=== PATIENT | female | born 1985 ===

== ENCOUNTER 2025-08-16 09:00 | Outpatient (RCR) | payer OTHER, SELFPAY ==
[2025-08-12 12:08] VITALS: BP 104/60; PULSE 60; TEMP 37.2; BMI 23.7
--- NOTE | 2025-08-16 17:53 | P.HPPSP_ITS ---
HPI Date of Service: 08/16/25 Chief Complaint: anxiety Sources of Information: patient interviewed, chart reviewed and crisis/core team assessment reviewed HPI Narrative: Patient is a 40 yo female with history of depression, SI, mood instability, paranoia, AH in the past, intermittent substance use, treatment who had a recent IPLOC for worsening depression, making SI/HI statements in context of medication non-compliance is being stepped down to [facility] for therapeutic support and ongoing medication management. She was discharged last week from [place] [id number] after 10 day admission. She reports that she had stopped all her medications (which included Abilify and Cymbalta) in March and had been decompensating for the months prior to admission with worsening depression, likely bipolar disorder marked by emotional instability and reactivity, behavioral dysregulation, poor impulse control, During her IP stay, she had initially refused all mediations for 3 days and then eventually agreed to being start on Effexor and hydroxyzine. She complains of on going mood instability, anxiety, vague paranoia. She also shares that she struggles with treatment, even when she is agreeable to take medication and is compliant on medication, she is often resistent to any changes or adjustments to her regime, even when it is clear that an adjustment is warranted. I have trouble (in the therapeutic setting), sometimes I just runaway . She reportedly has been taking her medications daily. We review treatment history, many mood stabilizers she has disliked the side effects which we explore in detail. Past Psychiatric History: IPLOC :[facility] x 10days for SI/HI in 07/2025, No prior PHP, respite, detox/rehab admissions SA: denies SIB: denies Aggression or antisocial behaviors: denies Denies legal history Pertinent developmental hx: Previous diagnoses: Psychiatrist: Therapist: PCP: Previous trials: Adderall XR 15 (was rxed once #30 in 11/2024) CURRENT MEDICATIONS: Effexor 37.5 mg qd hydroxyzine Fiorecet q 4 hr prn migraine (not listed under [facility]) FORMERLY [facility], [facility] Medical History TBI (traumatic brain injury) Tension headache TMJ (temporomandibular joint syndrome) Diagnostics Vital Signs (24Hr): BMI result Body Mass Index 23.7 Meds/Allergies Meds Home Medications ?Medication ?Instructions ?Recorded ?Confirmed ?Type vyushhovpc-iebihbzanajge-vvxaiyqz 1 tab PO Q4H PRN Noe eliz Headache 08/12/25 08/17/25 History 50 mg-325 mg-40 mg tablet cholecalciferol (vitamin D3) 25 25 mcg PO DAILY 08/17/25 History mcg (1,000 unit) tablet (Vitamin D3) hydroxyzine HCl 50 mg tablet 50 mg PO TID PRN Anxiety 08/12/25 08/17/25 History nicotine (polacrilex) 2 mg gum 2 mg buccal Q2H PRN Tavo otine 08/12/25 08/17/25 History Cravings nicotine 21 mg/24 hr daily 1 patch transdermal DAILY N icotine 08/12/25 08/17/25 History transdermal patch cravings venlafaxine 37.5 mg 37.5 mg PO DAILY 08/12/25 History capsule,extended release 24 hr Allergies Allergies Allergy/AdvReac Type Severity Reaction Status Date / Time amoxicillin Allergy Rash, Verified 08/17/25 09:35 vomiting codeine Allergy Rash, Verified 08/17/25 09:35 Vomiting onion Allergy Vomiting, Verified 08/17/25 09:35 throat itching. Penicillins (PCN) Allergy Rash, Verified 08/17/25 09:35 vomiting. quetiapine (From Seroquel) Allergy Skin Verified 08/17/25 09:35 crawling, agitated. Sulfa (Sulfonamide Allergy Rash, Verified 08/17/25 09:35 Antibiotics) vomiting. Mental Status Exam Mental Status Exam Narrative: .Alert, oriented, in no acute distress. Calm, cooperative, engaged. No psychomotor agitation or neurovegetative retardation. Eye contact maintained. Mood depressed, affect constricted, irritable edge without notable lability. Speech normal. Thought process linear, coherent. Thought content related to stressors, transient helplessness, no hopelessness noted, denies SI, intention, urge or plan. Denies any aggressive ideation or HI. No paranoia or delusional content elicited. No evidence of psychosis. Insight and judgment - fair but adequate Assessment & Plan Assessment & Plan (1) Bipolar affective, depress, unspec: Status: Acute Code(s): F31.30 - Bipolar disorder, current episode depressed, mild or moderate severity, unspecified (2) MAEVE (generalized anxiety disorder): Status: Acute Code(s): F41.1 - Generalized anxiety disorder Plan Admit to [facility] VS reviewed: afebrile, BP 104/60;?60 bpm start Vraylar 1.5 mg qd continue regular medications for now Routine lab work as indicated EKG, routine for baseline QTc for medication considerations as indicated UDS as indicated [facility] reviewed Continue to monitor as per protocol Patient educated on: diagnosis and medication risk/benefits Informed Consent: understands Reason for continued partial hosp. stay Substantial Risk for: inability to function, rapid decompensation and med/psych decompensation Certification I certify that partial hospital treatment is medically necessary due to the symptoms and problems resulting from the patient's mental illness and the failure to treat the patient at the partial hospital level of care would likely result in the patient requiring inpatient psychiatric care which could not be prevented at a less intensive level of care. Time Spent With Patient Time: Total time managing care of this patient today __90__ minutes.
== END 2025-08-16 23:59 | disposition admitted as inpatient to this hospital (09) ==
LOC: HO.PHPA 09:00
PROVIDERS: Visit Provider Psychiatry & Neurology Psychiatry
DX: F31.30 Bipolar disorder, current episode depressed, mild or moderate severity, unspecified (principal); F41.1 Generalized anxiety disorder; Z79.899 Other long term (current) drug therapy
CPT/HCPCS: 90791; 90853

== ENCOUNTER → 2025-08-16 09:00 | Outpatient (BNV) | payer OTHER, SELFPAY | PROVIDERS: Visit Provider Psychiatry & Neurology Psychiatry | DX: F31.32 Bipolar disorder, current episode depressed, moderate (principal); F41.1 Generalized anxiety disorder | CPT/HCPCS: 99499 ==

== ENCOUNTER 2025-08-17 09:28 | Emergency (ER) | payer MEDICAID, SELFPAY ==
[2025-08-17 09:34] VITALS: BP 158/81; PULSE 83; RESP 18; TEMP 36.7; O2SAT 98; BMI 22.5
--- NOTE | 2025-08-17 09:37 | ED_ITS ---
HPI - General Adult General Chief complaint: Psychiatric Symptoms Stated complaint: si Time Seen by Provider: 08/17/25 09:36 Source: patient Mode of arrival: ambulatory Limitations: no limitations History of Present Illness ED Provider: Mireya Dunham PA-C HPI narrative: Patient is a 40 year old assigned female at with a history of TBI and TMJ presenting to the emergency department today with suicidal ideation. Patient states that she has been feeling suicidal with a plan but would prefer to share the details with the CARE team. Patient denies any other complaints at this time. Related Data Home Medications ?Medication ?Instructions ?Recorded ?Confirmed atiqcotnoq-ifystbrhouluk-bllxzxkl 1 tab PO Q4H PRN Noe eliz Headache 08/12/25 08/17/25 50 mg-325 mg-40 mg tablet cholecalciferol (vitamin D3) 25 25 mcg PO DAILY 08/17/25 mcg (1,000 unit) tablet (Vitamin D3) hydroxyzine HCl 50 mg tablet 50 mg PO TID PRN Anxiety 08/12/25 08/17/25 nicotine (polacrilex) 2 mg gum 2 mg buccal Q2H PRN Tavo otine 08/12/25 08/17/25 Cravings nicotine 21 mg/24 hr daily 1 patch transdermal DAILY N icotine 08/12/25 08/17/25 transdermal patch cravings venlafaxine 37.5 mg 37.5 mg PO DAILY 08/12/25 capsule,extended release 24 hr Previous Rx's ?Medication ?Instructions ?Recorded cariprazine 1.5 mg capsule 1.5 mg PO DAILY #20 caps Allergies Allergy/AdvReac Type Severity Reaction Status Date / Time amoxicillin Allergy Rash, Verified 08/17/25 09:35 vomiting codeine Allergy Rash, Verified 08/17/25 09:35 Vomiting onion Allergy Vomiting, Verified 08/17/25 09:35 throat itching. Penicillins (PCN) Allergy Rash, Verified 08/17/25 09:35 vomiting. quetiapine (From Seroquel) Allergy Skin Verified 08/17/25 09:35 crawling, agitated. Sulfa (Sulfonamide Allergy Rash, Verified 08/17/25 09:35 Antibiotics) vomiting. Review of Systems 2 Constitutional: Constitutional: Reports as per HPI Eyes: Eyes: Reports as per HPI ENT: Reports as per HPI Cardiovascular: Cardiovascular: Reports as per HPI Respiratory: Respiratory: Reports as per HPI Gastrointestinal: Gastrointestinal: Reports as per HPI Genitourinary: Genitourinary: Reports as per HPI Musculoskeletal: Musculoskeletal: Reports as per HPI Integumentary/Breasts: Skin/Breast: Reports as per HPI Neurologic: Reports as per HPI Psychiatric: Psychiatric: Reports as per HPI Endocrine: Endocrine: Reports as per HPI Hematologic/Lymphatic: Hematologic/Lymphatic: Reports as per HPI Allergic/Immunologic: Allergic/Immunologic: Reports as per HPI [facility] Past Medical History Attestation statement: The following information was validated with the patient. Source: old records reviewed and nursing notes reviewed Medical History TBI (traumatic brain injury) Tension headache TMJ (temporomandibular joint syndrome) Social History Social History Household Members: Significant Other Patient Tobacco Use Status: Current everyday Tobacco user Tobacco use type: Cigarette Advance Directives: No Advance Directives Information Provided: No Do you have a plan to hurt others: No Plan Patient : No Physical Exam ED Vital Signs: Vital Signs - 24 hr 08/20/25 06:31 08/20/25 08:45 Temperature 97.6 F Pulse Rate 89 Respiratory Rate 16 18 Blood Pressure 124/84 Pulse Oximetry 99 Oxygen Delivery Method Room Air BMI result Body Mass Index 22.5 Const General: cooperative, no acute distress, alert and awake Nutritional Appearance: well nourished Orientation/consciousness: patient oriented x3 HENMT Head: Yes normal to inspection and Yes atraumatic Ears: hearing grossly normal bilaterally and external ears normal General nose exam: Normal external nose present, no nasal discharge noted and no epistaxis Face and sinus: Yes normal facial exam, No abrasion and No laceration Mouth: Normal oral and palatal mucosa present, no drooling and no muffled voice Eyes General: appearance normal, both eyes and all related structures Periorbital: periorbital findings normal Eyelids: Yes eyelids normal Conjunctivae: conjunctivae normal Pupils: Equal, round and reactive pupils present EOM: EOMs intact bilaterally Neck Neck: Yes normal visual inspection and Yes full ROM Resp Effort & Inspection: normal respiratory effort and able to speak in complete sentences Neuro General: patient oriented x3, moves all extremities and CN's II-XI intact bilaterally Cranial nerves: Yes Equal, round and reactive pupils present Cognition (Neuro): normal cognition Extrem General: Yes normal to inspection, Yes full ROM and Yes capillary refill normal Psych Appearance: grossly normal Mental Status: mental status grossly normal Affect: normal affect Attitude: cooperative Thought content: Suicidality present Course Course Course Narrative: Time: 08:36 Date: 08/18/25 Provider: Demarco Fisher, DO Patient in physician observation for psychiatric evaluation.? No acute events reported overnight. No current complaints. VS stable.? Patient is in bed search Will continue to monitor. Reevaluation(s) Reevaluation #1: Time: 17:29 Date: 08/19/25 Provider: Timothy Villeda MD Patient in physician observation for psychiatric evaluation.? No acute events reported overnight. No current complaints. VS stable.? Patient is in bed search status. No acute events during the day shift today. Will continue to monitor. Time: 17:30 Reevaluation #2: Time: 17:13 Date: 08/20/25 Provider: Timothy Villeda MD Physician observation ended at 17:00. There were no acute events during the overnight shift last night and there has been no acute events during the day shift today. The patient has been accepted for hospitalization at the [facility] in [facility] and will be transferred there by ambulance. No new acute issues. Medications Administered Generic Name Dose Route Start Last Admin Trade Name Freq PRN Reason Stop Dose Admin Acetaminophen/Butalbital/Caffeine 1 tab 08/17/25 18:59 08/20/25 07:51 Butalb/Acetamin/Caff 50/325/40 Tablet PO 1 tab Q4H PRN Administration Migraine Headache Cariprazine 1.5 mg 08/18/25 09:00 08/20/25 08:54 Cariprazine Hcl 1.5 Mg Capsule PO 1.5 mg DAILY VARINDER Administration Hydroxyzine HCl 50 mg 08/17/25 18:59 08/20/25 13:34 Hydroxyzine Hcl 50 Mg Tablet PO 50 mg TID PRN Administration Anxiety Nicotine 21 mg 08/17/25 19:00 08/20/25 08:58 Nicotine 21 Mg Patch.Td24 TRANSDERMA Not Given DAILY VARINDER Nicotine Polacrilex 2 mg 08/17/25 18:59 08/20/25 16:53 Nicotine Polacrilex 2 Mg Gum BUCCAL 2 mg Q2H PRN Administration Nicotine Cravings Venlafaxine HCl 37.5 mg 08/18/25 09:00 08/20/25 08:54 Venlafaxine Hcl Er 37.5 Mg Cap.Er.24h PO 37.5 mg DAILY VARINDER Administration Vitamin D 25 mcg 08/18/25 09:00 08/20/25 08:54 Cholecalciferol (Vitamin D3) 25 Mcg Tablet PO 25 mcg DAILY VARINDER Administration Discontinued Medications Generic Name Dose Route Start Last Admin Trade Name Adriano PRN Reason Stop Dose Admin Calcium Carbonate 750 mg 08/17/25 13:48 08/17/25 15:12 Calcium Carbonate 750 Mg Tab.Chew PO 08/17/25 13:49 750 mg ONCE ONE Administration Calcium Carbonate 1,500 mg 08/20/25 14:54 08/20/25 16:04 Calcium Carbonate 750 Mg Tab.Chew PO 08/20/25 14:55 1,500 mg ONCE ONE Administration Hydroxyzine HCl 25 mg 08/17/25 13:48 08/17/25 13:54 Hydroxyzine Hcl 25 Mg Tablet PO 08/17/25 13:49 25 mg ONCE ONE Administration Medical Decision Making Medical Decision Making MDM Narrative: Patient is a 40 year old assigned female at with a history of TBI and TMJ presenting to the emergency department today with suicidal ideation. Patient's physical exam was as noted in the physical exam portion of this note. Patient's blood work was unremarkable. Patient's urine showed no acute process. Patient met with the CARE Team who recommended inpatient level of psychiatric care. Patient placed in observation at 0937. Patient will either be admitted to the inpatient psychiatric unit here at [facility] or transferred to an appropriate psychiatric facility. Differential Diagnosis Differential Diagnoses: The differential diagnosis associated with the presentation includes SI Depression Admission/Observation Consideration of admission/observation: Escalation of care including admission/observation considered Patient will either be admitted to the inpatient psychiatric unit here at [facility] or transferred to an appropriate psychiatric facility. Consult Healthcare Provider Management of the patient was discussed with: Behavioral Health Provider (I spoke with the CARE team as noted in the MDM Rationale portion of this note. ) Lab Data MDM Lab Attestation statement: I reviewed the patient's lab results. My interpretation of these results are in the MDM Rationale portion of this note. 08/17/25 10:12 08/17/25 10:12 Labs: Lab Results 08/17/25 Range/Units 10:12 WBC 10.4 (4.8-10.8) X10*3/uL RBC 4.46 (4.20-5.50) X10*6/uL Hgb 12.3 (12.0-16.0) g/dl Hct 38.3 (37.0-47.0) % MCV 85.9 (80.0-98.0) fL MCH 27.6 (27.0-33.0) pg MCHC 32.1 (31.0-35.0) g/dl RDW 15.2 (11.0-16.0) % Plt Count 335 (160-400) X10*3/uL MPV 9.1 L (9.4-12.3) fL Immature Gran % (Auto) 0.3 (0.0-0.4) % Neut % (Auto) 68.5 (45-73) % Lymph % (Auto) 23.4 (20-40) % [place] % (Auto) 4.9 (2-11) % Eos % (Auto) 2.2 (0-4) % Baso % (Auto) 0.7 (0-2) % Lymph # (Auto) 2.4 (1.2-4.9) X10*3/uL [place] # (Auto) 0.5 (0.1-1.2) X10*3/uL Eos # (Auto) 0.2 (0.0-0.4) X10*3/uL Baso # (Auto) 0.1 (0.0-0.2) X10*3/uL Abs Immat Gran (auto) 0.03 (0.00-0.03) X10*3/uL Absolute Neuts (auto) 7.1 (2.0-8.3) x10*3/uL Absolute Nucleated RBC 0.000 (0.0-0.012) X10*3/uL Nucleated RBC % (auto) 0.0 (0.0-0.2) /100WBC Sodium 138 (135-145) mmol/L Potassium 3.9 (3.3-5.1) mmol/L Chloride 107 (96-108) mmol/L Carbon Dioxide 23 (22-29) mmol/L Anion Gap 12 (12-20) BUN 17 H (9-16) mg/dL Creatinine 0.70 (0.5-1.4) mg/dL Estim Creat Clear Calc 109.4 Estimated GFR > 60 Random Glucose 98 (60-115) mg/dL Calcium 9.2 (8.4-10.2) mg/dL Total Bilirubin 0.3 (0.0-1.0) mg/dL AST 22 (5-31) U/L ALT 25 (0-31) U/L Alkaline Phosphatase 62 (39-117) U/L Total Protein 7.1 (6.5-8.0) g/dL Albumin 4.5 (3.5-5.0) g/dL Urine Color Yellow Urine Appearance Clear Urine pH 6.0 (5.0-9.0) Ur Specific [place] 1.020 (1.005-1.025) Urine Protein Negative (Neg-Trace) mg/dL Urine Glucose (UA) Negative (Negative) mg/dL Urine Ketones Negative (Negative) mg/dL Urine Blood Negative (Negative) Urine Nitrite Negative (Negative) Ur Leukocyte Esterase Negative (Negative) Urine Test NEGATIVE (NEGATIVE) Salicylates < 5.0 L (15-30) mg/dL Urine Opiates Screen Not Detected (Not Detect) Ur Buprenorphine Scrn Not Detected (Not Detect) ng/mL Ur Oxycodone Screen Not Detected (Not Detect) ng/mL Urine Methadone Screen Not Detected (Not Detect) ng/mL Urine Fentanyl Screen Not Detected (Not Detect) Acetaminophen < 3 (<30) mcg/mL Ur Barbiturates Screen POSITIVE H (Not Detect) Ur Phencyclidine Scrn Not Detected (Not Detect) Ur Amphetamines Screen Not Detected (Not Detect) U Benzodiazepines Scrn Not Detected (Not Detect) Urine Cocaine Screen Not Detected (Not Detect) U Marijuana (THC) Screen POSITIVE H (Not Detect) Ethyl Alcohol < 10 mg/dL Critical Care Time Critical Care Time Critical Care Time: Yes Total Critical Care Time: 34 Attestation: I spent 34 minutes of Critical Care Time with this patient. This does not include time spent on separately reported billable procedures. Discharge Plan Discharge Clinical Impression: Suicidal ideation Depression Qualifiers: Depression Type: unspecified Qualified Code(s): F32.A - Depression, unspecified Patient Disposition: Xfer Psychiatric Hosp Transfer Details: [facility]: [facility] BY [facility] HARPER Prescriptions: No Action venlafaxine 37.5 mg Capsule,Extended Release 24hr 37.5 mg PO DAILY nicotine (polacrilex) 2 mg Gum 2 mg BUCCAL Q2H PRN (Reason: Nicotine Cravings) hydroxyzine HCl [Atarax] 50 mg Tablet 50 mg PO TID PRN (Reason: Anxiety) yjodrzejss-aqvhelrkuqlua-esee 50-325-40 mg Tablet 1 tab PO Q4H PRN (Reason: Migraine Headache) nicotine 21 mg/24 hr Patch 24 Hour 1 patch TRANSDERMAL DAILY cholecalciferol (vitamin D3) [Vitamin D3] 25 mcg (1,000 unit) Tablet 25 mcg PO DAILY cariprazine 1.5 mg capsule 1.5 mg PO DAILY Qty: 20 0RF Referrals: [facility] [Primary Care Provider, Medical] Interventions: [place]-Suicide Risk Severity Scale Last Done: 08/19/25 18:12 Print Language: Choose Not To Answer
--- OUTSIDE RECORDS SUMMARY | 2025-08-17 09:47 | XMS_ITS | Clinical Summary ---
Author Organization [facility] Address [address] [employer] [facility] [address] [place] [phone] Phone Care Team Providers Care Career Development Director Name Role Phone Marco Acharya DO Unavailable Pcp, Unknown Primary Care Provider Unavailabl e Allergies Active Allergy Reactions Criticality Noted Date Comments Amoxicillin 12/06/2017 Codeine 12/06/2017 Onion 11/13/2024 Penicillins 06/05/2012 Other Reaction(s): Unknown Quetiapine Feeling Irritable Low 07/31/2025 Sulfa (Sulfonamide Antibiotics) 06/05/2012 Other Reaction(s): rash Sulfate Ion 03/14/2025 Medications * This document contains information received from the source organization and may not represent a complete record from that organization. butalbital-acet aminophen-caffe ine (FIORICET, ESGIC) 50-325-40 mg per tablet Take 1 tablet by mouth every 4 (four) hours as needed for headache. 42 tablet 5 Active cholecalciferol (VITAMIN D3) 25 MCG (1,000 unit) tablet Take 1 tablet (1,000 Units total) by mouth daily. 21 tablet 5 Active hydrOXYzine (ATARAX) 50 MG tablet Take 1 tablet (50 mg total) by mouth 3 (three) times a day as needed for anxiety. 63 tablet 5 Active venlafaxine (EFFEXOR-XR) 37.5 MG 24 hr capsule Take 1 capsule (37.5 mg total) by mouth daily. 21 capsule 5 Active nicotine (NICODERM CQ) 21 mg/[address] 1 patch onto the skin daily. Apply to a clean, dry, hairless site on the upper arm or hip. 21 patch Active nicotine polacrilex (NICORETTE) [address] 1 each (2 mg total) inside cheek every 2 (two) hours as needed for smoking cessation. 190 each 5 Active ARIPiprazole (ABILIFY) 20 MG tablet Take 1 tablet (20 mg total) by mouth daily. 30 tablet 5 08/07/20 Discontinu ed(Stop Taking at Discharge) dextroamphetami ne-amphetamine (ADDERALL XR) 15 MG 24 hr capsule Take 1 capsule (15 mg total) by mouth every morning. 30 capsule 5 08/07/20 Discontinu ed(Stop Taking at Discharge) DULoxetine (CYMBALTA) 60 MG capsule Take 1 capsule (60 mg total) by mouth 2 (two) times a day. 60 capsule 5 08/07/20 Discontinu ed(Stop Taking at Discharge) Active Problems Problem Noted Date Diagnosed Date Suicidal ideation 02/26/2023 Assessment & Plan (08/02/2025 9:32 AM EDT): Per psychiatry. TMJ; NSAIDs ie motrin 400mg tid prn or naprosyn 500 bid prn. Ice. Dentist as outpt. 6th cranial nerve palsy. DW neuro, findings on MRI could be microangiopathic, but could be related to sporadic cocaine use as well. This problem has a good prognosis. Will ask our OT if anyone here has training, if not who to refer to as outpt. MG labs as well as CRP and ESR for am. Pt aware of findings, suspected etiology and anticipated course. Cocaine cessation and tobacco cessation encouraged. If MG labs are abnormal(probably won't be back before dc) or CRP/ESR are significantly elevated(would need to consider vasculitis) reconsult medicine. Otherwise, signing off. Encounters * This document contains information received from the source organization and may not represent a complete record from that organization. Date Type Department Care Team Description 08/01/2025 Procedure Pass [facility], [facility] - [address] [address] from Last 3 Months Immunizations Immunization Administration Dates Next Due INFLUENZA, SPLIT VIRUS, TRIVALENT PF 08/07/2025( Deferred: Patient Refused) Social History Tobacco Use Types Packs/Day Years Used Date Smoking Tobacco: Every Day Cigarettes Tobacco Cessation:Ready to Q uit: Not Asked; Counseling Given: Not Answered Alcohol Use Standard Drinks/Week Comments Yes 0 (1 standard drink = 0.6 oz pur e alcohol) Education Answer Date Recorded Are you interested in more education? Not on reginald e 03/04/2023 Are you concerned about learning? Not on file 03/04/2023 No 03/04/2023 No 03/04/2023 Food Answer Date Recorded Within the past 6 months we worried whether our food would run out before we got money to buy more. Never True 07/27/2025 Within the past 6 months the food we bought just didn't last and we didn't have enough money to get more. Never True Residential Stability Answer Date Recor ded What is your housing situation today? I have lola sing 07/27/2025 How many times have you move d in the past 12 months? Zero (I did not move) 07/27/2025 Paying for Meds Answer Date Recorded Do you have trouble paying for medicines? No 07/27/2025 Paying Utility Bills Answer Date Record ed Do you have trouble paying your heating or elect ricity bill? No 07/27/2025 Transportation Answer Date Recorded Has the lack of transportati on kept you from medical appointments or from getting medications? No 07/27/2025 Digital Access Answer Date Recorded No 07/27/2025 Yes 07/27/2025 Do you have reliable internet access at home? Ye s 07/27/2025 Do you have a device (e.g., phone, tablet, computer) with a working camera? Yes 07/27/2025 Intimate Partner Violence Answer Date R ecorded Are you denied basic needs s uch as food, clothing, or medical care? No 07/27/2025 In the past 12 months have y ou been in a relationship with a person who hurts, threatens, or tries to control you? No 07/27/2025 Are you denied basic needs s uch as food, clothing, or medical care? No 07/27/2025 In the past 12 months have y ou been in a relationship with a person who hurts, threatens, or tries to control you? No 07/27/2025 Comments Unknown Sex and Gender Information Value Date Recorded Sex Assigned at Female 02/26/2023 1:44 PM EDT Legal Sex Female 9:18 PM EDT Gender Identity Female 02/26/2023 1:44 PM EDT Sexual Orientation Not on file Last Filed Vital Signs Vital Sign Reading Time Taken Comments Blood Pressure 111/75 08/07/2025 7:00 AM EDT Pulse 64 08/07/2025 7:00 AM EDT Temperature 36.4 C (97.5 F) 08/07/2025 7:00 AM EDT Respiratory Rate 16 08/07/2025 7:00 AM EDT Oxygen Saturation 98% 08/07/2025 7:00 AM EDT Inhaled Oxygen Concentration - - Weight 68.2 kg (150 lb 6.4 oz) 07/28/2025 12:34 PM EDT Height 172.7 cm (5' 8 ) 07/28/2025 12:34 PM EDT Body Mass Index 22.87 07/28/2025 12:34 PM EDT Plan of Treatment Health Maintenance Due Date Last Done Comments Adult Td,Tdap Booster 1983 DEPRESSION SCREENING 1995 SMOKING Hx and SMOKELESS TOB ACCO SCREENING 1996 HEPATITIS C SCREENING 2001 HIV ONE-TIME SCREENING (18-6 5 YEARS) 2001 PNEUMOCOCCAL VACCINES (0-49 years) (1 of 2 - PCV) 2002 PAP SMEAR 2004 MAMMOGRAM 2023 INFLUENZA VACCINE (#1) 2025 COVID-19 VACCINE ( - 2024-2 6 season) 2025 HEPATITIS A VACCINES Aged Out No long er eligible based on patient's age to complete this topic HIB VACCINES Aged Out No longer eligi ble based on patient's age to complete this topic MENINGOCOCCAL VACCINES (ACWY) Aged Out No longer eligible based on patient's age to complete this topic MENINGOCOCCAL VACCINES (B) Aged Out N o longer eligible based on patient's age to complete this topic Medical Devices Not on file Procedures Procedure Name Priority Date/Time Associated Diagnosis Comments MUSK ANTIBODY Routine 08/03/2025 8:20 AM EDT C-REACTIVE PROTEIN Routine 08/03/2025 8: 20 AM EDT SEDIMENTATION RATE (ESR) Routine 08/03/2025 8:20 AM EDT MYASTHENIA GRAVIS EVALUATION W/MUSK REFLEX Routine 08/03/2025 8:20 AM EDT MRI BRAIN WITH AND WITHOUT CONTRAST Routine 08/01/2025 7:54 PM EDT HEMOGLOBIN A1C Routine 07/29/2025 7:39 AM EDT LIPID PANEL Routine 07/29/2025 7:39 AM EDT 25-OH VITAMIN D Routine 07/29/2025 7:39 AM EDT FOLATE Routine 07/29/2025 7:39 AM EDT TSH WITH REFLEX Routine 07/29/2025 7:39 AM EDT VITAMIN B12 Routine 07/29/2025 7:39 AM EDT SALICYLATES STAT 07/27/2025 7:05 PM EDT ACETAMINOPHEN LEVEL STAT 07/27/2025 7 :05 PM EDT HCG, SERUM QUALITATIVE STAT 7:05 PM EDT ETHANOL, BLOOD STAT 07/27/2025 7:05 PM EDT LFTS (HEPATIC PANEL) STAT 07/27/2025 7:05 PM EDT BASIC METABOLIC PANEL STAT 07/27/2025 7:05 PM EDT CBC AND DIFFERENTIAL STAT 07/27/2025 7:05 PM EDT TOXICOLOGY SCREEN, URINE STAT 07/27/2025 5:41 PM EDT from Last 3 Months Results * Myasthenia gravis evaluation w/MuSK reflex (08/03/2025 8:20 AM EDT) MG with MuSK Interpretation SEE NOTE [facility] DPT OF LAB MED AND PAT+ Comment: (NOTE) No informative autoantibodies were detected. A negative result does not exclude a diagnosis of autoimmune myasthenia gravis. ACH RECEPTOR BIND AB 0.00 <=0.02 nmol/L [facility] DPT OF LAB MED AND PAT+ Comment: (NOTE) ADDITIONAL INFORMATION This test was developed and its performance characteristics determined by [facility] in a manner consistent with CLIA requirements. This test has not been cleared or approved by the U.S. Food and Drug Administration. Blood 08/03/2025 8:20 AM EDT 08/03/2025 8:41 AM EDT us Oziel Pink MD LAB BLOOD ORDERABLES Final Result [facility] DPT OF LAB MED AND PAT+ [address] [place] [address] * MUSK ANTIBODY (08/03/2025 8:20 AM EDT) MUSK ANTIBODY 0.00 0.00 - 0.02 nmol/L [facility] DPT OF LAB MED AND PAT+ Comment: (NOTE) ADDITIONAL INFORMATION This test was developed using an analyte specific reagent. Its performance characteristics were determined by [facility] in a manner consistent with CLIA requirements. This test has not been cleared or approved by the U.S. Food and Drug Administration. 08/03/2025 8:20 AM EDT 08/03/2025 8:41 AM EDT us Oziel Pink MD LAB BLOOD ORDERABLES Final Result [facility] DPT OF LAB MED AND PAT+ [address] [place] [address] * (ABNORMAL) Sedimentation rate (ESR) (08/03/2025 8:20 AM EDT) ESR 24(H) 0 - 20 mm/h [facility] Blood 08/03/2025 8:20 AM EDT 08/03/2025 8:41 AM EDT us Oziel Pink MD LAB BLOOD ORDERABLES Final Result Performing Organization Address [facility] Co de Phone Number [address] [address] * (ABNORMAL) C-Reactive Protein (08/03/2025 8:20 AM EDT) C REACTIVE PROTEIN 16.4(H) 0.0 - 4.0 mg/L [facility] Blood 08/03/2025 8:20 AM EDT 08/03/2025 8:41 AM EDT us Oziel Pink MD LAB BLOOD ORDERABLES Final Result Performing Organization Address [facility] Co de Phone Number [address] [address] * MRI BRAIN WITH AND WITHOUT CONTRAST (08/01/2025 7:54 PM EDT) Anatomical Region Laterality Modality Head Magnetic Resonan ce 08/01/2025 8:22 PM EDT Impressions 08/01/2025 8:31 PM EDT Few scattered small foci of FLAIR hyperintensity within the supratentorial white matter is a nonspecific finding, with differential diagnosis to include chronic migraines, early microangiopathic changes, and demyelinating disease Narrative 08/01/2025 8:31 PM EDT MRI BRAIN WITH AND WITHOUT CONTRAST Referring clinician's provided indication for this examination in [facility]: * Diplopia; new onset double vision, no gross abnormalities by exam TECHNIQUE: MRI BRAIN WITH AND WITHOUT CONTRAST Multi-sequence, multi-planar MRI of the brain and orbits was performed before and after intravenous contrast. COMPARISON: None. FINDINGS: MRI BRAIN: Brain Parenchyma: There is no mass-effect, midline shift, or space-occupying lesion. There is no decreased diffusion to indicate an acute infarct. There are scattered small foci of FLAIR hyperintensity predominantly in the subcortical and periventricular frontal lobes. Ventricular System and Extra-Axial Spaces: The ventricles, sulci and cisterns are age-appropriate. Extracranial Structures: The visualized paranasal sinuses appear clear. The mastoid air cells appear clear. Orbits: Normal signal in the optic nerves. No ocular mass identified. No abnormal fluid signal enhancement orbital fat. Procedure Note Vinnie Arce MD - 08/01/2025 MRI BRAIN WITH AND WITHOUT CONTRAST Referring clinician's provided indication for this examination in [facility]: *Diplopia; new onset double vision, no gross abnormalities by exam TECHNIQUE: MRI BRAIN WITH AND WITHOUT CONTRAST Multi-sequence, multi-planar MRI of the brain and orbits was performedbefore and after intravenous contrast. COMPARISON: None. FINDINGS: MRI BRAIN: Brain Parenchyma: There is no mass-effect, midline shift, orspace-occupying lesion. There is no decreased diffusion to indicate anacute infarct. There are scattered small foci of FLAIR hyperintensity predominantly inthe subcortical and periventricular frontal lobes. Ventricular System and Extra-Axial Spaces: The ventricles, sulci andcisterns are age-appropriate. Extracranial Structures: The visualized paranasal sinuses appear clear.The mastoid air cells appear clear. Orbits: Normal signal in the optic nerves. No ocular mass identified. Noabnormal fluid signal enhancement orbital fat. IMPRESSION: Few scattered small foci of FLAIR hyperintensity within the supratentorialwhite matter is a nonspecific finding, with differential diagnosis toinclude chronic migraines, early microangiopathic changes, anddemyelinating disease Oziel Pink MD IMG MR HEAD/NECK Final Resu lt * TSH with reflex (07/29/2025 7:39 AM EDT) TSH 1.55 0.27 - 4.20 uIU/mL [facility] Blood 07/29/2025 7:39 AM EDT 07/29/2025 8:21 AM EDT us Jabari Alexa Jarrett [facility]- LAB BLOOD ORDERAB LES Final Result Performing Organization Address City/[facility]/ZIP Co de Phone Number [address] [address] * (ABNORMAL) 25-OH vitamin D (07/29/2025 7:39 AM EDT) 25 OH VIT D (TOTAL) 22(L) 30 - 60 ng/mL [facility] Blood 07/29/2025 7:39 AM EDT 07/29/2025 8:21 AM EDT us Jabari Fieldsarko [facility]- LAB BLOOD ORDERAB LES Final Result Performing Organization Address [facility]/ZIP Co de Phone Number [address] [address] * Hemoglobin A1c (07/29/2025 7:39 AM EDT) HEMOGLOBIN A1C 5.7 4.3 - 5.8 % [facility] Blood 07/29/2025 7:39 AM EDT 07/29/2025 8:21 AM EDT us aJbari Fieldsarko [facility]- LAB BLOOD ORDERAB LES Final Result Performing Organization Address City/[facility]/ZIP Co de Phone Number [address] [address] * Folate (07/29/2025 7:39 AM EDT) FOLIC ACID 12.1 4.2 - 19.9 ng/mL [facility] Blood 07/29/2025 7:39 AM EDT 07/29/2025 8:21 AM EDT us [facility]ari [facility] LAB BLOOD ORDERAB LES Final Result [address] [address] * Vitamin B12 (07/29/2025 7:39 AM EDT) VITAMIN B12 322 232 - 1,245 pg/mL [facility] Blood 07/29/2025 7:39 AM EDT 07/29/2025 8:21 AM EDT us Jabari Liu [facility] LAB BLOOD ORDERAB LES Final Result Performing Organization Address City/[facility]/ZIP Co de Phone Number [address] [address] * (ABNORMAL) Lipid panel (07/29/2025 7:39 AM EDT) HDL 77 mg/dL [facility] Comment: Interpretation <40 mg/dL: Low HDL cholesterol (major risk factor for CHD) Greater than or equal to 60 mg/dL: High HDL cholesterol ( negative risk factor for CHD) HDL - cholesterol is affected by a number of factors, e.g. smoking, excerise, hormones, sex and age. CHOLESTEROL 201 0 - 240 mg/dL [facility] TRIGLYCERIDES 73 30 - 160 mg/dL [facility] LDL 109 50 - 129 mg/dL [facility] Comment: LDL levels in terms of risk for coronary heart disease: <100 mg/dL: Optimal 100-129 mg/dL: Near or above optimal 130-159 mg/dL: Borderline high 160-189 mg/dL: High >190 mg/dL: Very High CARDIAC RISK RATIO 2.6(L) 3.3 - 4.4 C [facility] Blood 07/29/2025 7:39 AM EDT 07/29/2025 8:22 AM EDT us Jabari Umañalie Kolby [facility] LAB BLOOD ORDERAB LES Final Result Performing Organization Address City/[facility]/ZIP Co de Phone Number [address] [address] * Ethanol, blood (07/27/2025 7:05 PM EDT) ETHANOL <10 <10 mg/dL [facility] Blood 07/27/2025 7:05 PM EDT 07/27/2025 7:08 PM EDT us Roger Deutsch MD LAB BLOOD ORDERAB LES Final Result Performing Organization Address [facility]/ZIP Co de Phone Number [address] [address] * HCG, serum qualitative (07/27/2025 7:05 PM EDT) HCG, QUALITATIVE Negative Negative IU/L [facility] Blood 07/27/2025 7:05 PM EDT 07/27/2025 7:08 PM EDT us Roger Deutsch MD LAB BLOOD ORDERAB LES Final Result Performing Organization Address City/[facility]/ZIP Co de Phone Number [address] [address] * LFTs (hepatic panel) (07/27/2025 7:05 PM EDT) ALKALINE PHOSPHATASE 58 39 - 117 U/L [facility] TOTAL BILIRUBIN 0.3 0.0 - 1.2 mg/dL [facility] DIRECT BILIRUBIN 0.1 0.0 - 0.2 mg/dL [facility] Bilirubin (Indirect) NOT CALCULATED 0 - 1.5 mg/dL [facility] AST 15 0 - 37 U/L [facility] ALT 10 0 - 40 U/L [facility] TOTAL PROTEIN 7.4 6.5 - 8.0 g/dL [facility] ALBUMIN 4.4 3.9 - 4.8 g/dL [facility] GLOBULIN 3.0 1 - 4.8 g/dL [facility] A/G Ratio 1.47 1.00 - 4.80 RATIO [facility] Blood 07/27/2025 7:05 PM EDT 07/27/2025 7:08 PM EDT us Roger Deutsch MD LAB BLOOD ORDERAB LES Final Result [address] [address] * (ABNORMAL) CBC and differential (07/27/2025 7:05 PM EDT) WBC 7.28 4.00 - 11.00 K/uL [facility] RBC 4.47 4.00 - 5.20 M/uL [facility] HGB 12.6 12.0 - 16.0 g/dL [facility] HCT 39.1 36.0 - 46.0 % [facility] PLT 275 150 - 450 K/uL [facility] MCV 87.5 80.0 - 100.0 fL [facility] MCH 28.2 27.0 - 31.0 pg [facility] MCHC 32.2 32.0 - 36.0 g/dL [facility] RDW 15.5(H) 11.5 - 14.5 % [facility] MPV 9.0 8.4 - 12.0 fL [facility] NRBC 0.00 0.00 /100 WBCs [facility] ABSOLUTE NRBC 0.00 0.00 K/uL [facility] DIFF METHOD Auto [facility] NEUTS 52.2 48.0 - 76.0 % [facility] LYMPHS 36.8 18.0 - 41.0 % [facility] MONOS 6.6 4.0 - 11.0 % [facility] EOS 2.9 0.0 - 5.0 % [facility] BASOS 1.4 0.0 - 1.5 % [facility] Granulocytes, immature (%) 0.1 0.0 - 0.9 % [facility] ABSOLUTE NEUTS 3.80 1.92 - 7.60 K/uL [facility] ABSOLUTE LYMPHS 2.68 0.72 - 4.10 K/uL [facility] ABSOLUTE MONOS 0.48 0.16 - 1.10 K/uL [facility] ABSOLUTE EOS 0.21 0.00 - 0.50 K/uL [facility] ABSOLUTE BASOS 0.10 0.00 - 0.15 K/uL [facility] Granulocytes, immature 0.01 0.00 - 0.09 K/uL [facility] Blood 07/27/2025 7:05 PM EDT 07/27/2025 7:08 PM EDT us Roger Deutsch MD LAB BLOOD ORDERAB LES Final Result [address] [address] * (ABNORMAL) Acetaminophen level (07/27/2025 7:05 PM EDT) ACETAMINOPHEN <5.0(L) 15.0 - 30.0 ug/mL [facility] Blood 07/27/2025 7:05 PM EDT 07/27/2025 7:09 PM EDT us Kaden Pulliam PA-C LAB BLOOD ORDERABLES Final Res ult [address] [address] * (ABNORMAL) Salicylates (07/27/2025 7:05 PM EDT) SALICYLATES <0.3(L) 2.8 - 19.9 mg/dL [facility] Blood 07/27/2025 7:05 PM EDT 07/27/2025 7:09 PM EDT us Kaden Pulliam PA-C LAB BLOOD ORDERABLES Final Res ult Performing Organization Address City/[facility]/ZIP Co de Phone Number [address] [address] * (ABNORMAL) Basic metabolic panel (07/27/2025 7:05 PM EDT) SODIUM 141 133 - 146 mmol/L [facility] CHLORIDE 107 96 - 108 mmol/L [facility] POTASSIUM 4.1 3.3 - 5.1 mmol/L [facility] CO2 22 21 - 35 mmol/L [facility] BUN 8 6 - 19 mg/dL [facility] CREATININE 0.70 0.5 - 1.5 mg/dL [facility] GLUCOSE 102(H) 70 - 99 mg/dL [facility] CALCIUM 8.9 8.4 - 10.3 mg/dL [facility] EGFR 111 >59 mL/min/1.7 3m2 [facility] Comment:Estimated glomerular filtration rate calculated using the CKD-EPI refit equation. ANION GAP 16 10 - 20 mmol/L [facility] Blood 07/27/2025 7:05 PM EDT 07/27/2025 7:08 PM EDT us Roger Deutsch MD LAB BLOOD ORDERAB LES Final Result Performing Organization Address [facility]/ZIP Co de Phone Number [address] [address] * (ABNORMAL) Toxicology screen, urine (07/27/2025 5:41 PM EDT) URINE CANNABINOIDS Positive(A) NONE DETECTED [facility] Comment:Cutoff: 50 ng/mL URINE COCAINE METAB Positive(A) NONE DETECTED [facility] Comment:Cutoff: 300 ng/mL URINE AMPHETAMINES Positive(A) NONE DETECTED [facility] Comment:Cutoff: 1000 ng/mL URINE METHADONE NONE DETECTED NONE DETECTED [facility] Comment:Cutoff: 300 ng/mL URINE OPIATES NONE DETECTED NONE DETECTED [facility] Comment:Cutoff: 300 ng/mL URINE PHENCYCLIDINE NONE DETECTED NONE DETECTED [facility] Comment:Cutoff: 25 ng/mL URINE OXYCODONE NONE DETECTED NONE DETECTED [facility] Comment:Cutoff: 300 ng/mL URINE BARBITURATES NONE DETECTED NONE DETECTED [facility] Comment:Cutoff: 200 ng/mL URINE BENZODIAZEPINE NONE DETECTED NONE DETECTED [facility] Comment:Cutoff: 200 ng/mL URINE BUPRENORPHINE NONE DETECTED NONE DETECTED [facility] Comment:Cutoff: 5 ng/mL Fentanyl, urine NONE DETECTED NONE DETECTED [facility] Comment: Cutoff: 5 ng/mL INTERPRETATION FOR TOXICOLOGY PANEL: These results are unconfirmed and should be used for Medical Treatment purposes only. Urine (Urine) 07/27/2025 5:4 1 PM EDT 07/27/2025 6:02 PM EDT Roger Deutsch MD URINE ORDERABLES Final Result [facility] [address] [place] [address] from Last 3 Months Insurance [facility] [place] [facility] [place] [facility] Advance Directives For more information, please contact: [phone] (9AM - 5PM Delfina/[facility], Tuesday-Tuesday) * Full Code (Latest Code Status on File) Date Activated Date Inactivated Comments 07/28/2025 12:22 PM Question Answer Comments Code Status Confirmed With: Patient Care Teams Career Development Director Relationship Specialty Start Date End Date Pcp, Unknown PCP - General 02/02/23 Marco Acharya DO [address] [place] [address], [address] [place] [address] [email or web address] Family Medicine 09/22/17 Additional Source Comments The information contained in this document represents components of the legal health record. It is not the complete legal health record.[facility]
--- OUTSIDE RECORDS SUMMARY | 2025-08-17 09:47 | XMS_ITS | Clinical Summary ---
Author Organization [employer] Address [address] [place] [address] [address] [place] [address] Care Team Providers Care Cranberry Grower Name Role Phone Becca Pollard [facility] Primary Care Provider [phone] Allergies Active Allergy Reactions Criticality Noted Date Comments Amoxicillin 03/14/2025 Codeine 03/14/2025 Penicillins 03/14/2025 Sulfate 03/14/2025 Medications * This document contains information received from the source organization and may not represent a complete record from that organization. DULoxetine (Cymbalta) [address] Iverson ons:Bipolar depression (CMS/HCC) (HCC) Take 1 capsule (60 mg) by mouth Once per day. Do not crush or chew. 30 capsule 1 5 03/14/20 26 Active Additional Information Patient not taking.Reported on 06/21/2025 benzocaine (Orajel) 10 % mucosal gelIndications: Oral mucosal lesion Apply to oral sores every 2-3 hrs prn 5.3 g 5 Active Additional Information Patient not taking.Reported on 06/21/2025 Mouthwashes (Biotene Dry Mouth) liquidIndicatio ns:Burning sensation of mouth Take 1 Units by mouth every 2 (two) hours if needed (mouth burning). 237 mL 5 Active Additional Information Patient not taking.Reported on 06/21/2025 ARIPiprazole (Abilify) 20 MG tablet Take 20 mg by mouth Once per day. 5 Active amphetamine-dex troamphetamine XR (Adderall XR) 15 MG 24 hr capsule Take 15 mg by mouth in the morning. 5 Active Active Problems Problem Noted Date Diagnosed Date Bipolar I disorder, current or most recent episode depressed, with psychotic features ([facility]/HCC) 06/21/2025 Bartholin cyst 03/14/2025 Assessment & Plan (03/14/2025 1:48 PM EDT): Seen at [facility] on 03/11/25 with Bartholin's Cyst, s/p incisaion and drainage. Treated with doxycycline monohydrate (MONODOX) 100 MG capsule (100 mg total) by mouth 2 (two) times a day for 7 days and metroNIDAZOLE (FLAGYL) 500 MG tablet 3 (three) times a day for 7 days. Today is day 3 of 7. Cultures gram pos cocci. Lost medications. -prescribed metroNIDAZOLE (Flagyl) 500 MG and doxycycline (Vibramycin) 100 MG. Bipolar depression (CMS/HCC) 03/14/2025 Assessment & Plan (03/14/2025 1:48 PM EDT): Hx of bipolar depression, needs new therapist on Duloxetine. -refilled DULoxetine (Cymbalta) [address] -referred to [facility] Suicidal ideation 02/26/2023 Strain of thoracic back region 11/02/2021 Muscle strain of right shoulder 11/02/2021 Pain in joint of right shoulder 10/12/2021 Neck pain 10/12/2021 Cervical radiculopathy 10/12/2021 Encounters * This document contains information received from the source organization and may not represent a complete record from that organization. Date Type Department Care Team Description 08/09/2025 Patient Outreach [facility] [address] [place] [address] Becca Pollard FNP Discharge Request (Patient needs to fill out release form. ) 08/08/2025 Patient Outreach [facility] [address] [place] [address] Becca Pollard FNP Transition Of Care (Tcm) (HDF unscheduled. ) 06/21/2025 10:30 AM EDT Office Visit [facility] [address] [place], [place] [id number] Becca Pollard FNP Family history of diabetes mellitus (Primary Dx); Bipolar depression ([facility]); Healthcare maintenance 06/21/2025 Travel 06/20/2025 Telephone [facility] [address] [place] [address] GuilderlandBecca FNP chart prep 06/14/2025 Patient Outreach [facility] [address] [place], [place] [phone] GuilderlandBecca [facility] Pre-visit Planning (SDOH unable to reach LVM ) from Last 3 Months Social History Tobacco Use Types Packs/Day Years Used Date Smoking Tobacco: Every Day Cigarettes Passive Smoke Exposure: Current Smokeless Tobacco: Never Tobacco Cessation:Ready to Q uit: Not Asked; Counseling Given: Not Answered Depression Answer Date Recorded Patient Health Questionnaire-9 Score 20 06/21/2025 Patient Health Questionnaire-9 Score 20 06/21/2025 Last PHQ-9: Questionnaire Data Not on file 0 06/21/2025 Housing Stability Answer Date Recorded What is your housing situation today? I have lola vigil 06/21/[address] you li ve. Do you have problems with any of the following? None of the above 06/21/2025 Food Insecurity Answer Date Recorded Within the past 12 months, y ou worried that your food would run out before you got money to buy more: Never True 06/21/2025 Within the past 12 months,th e food you bought just didn't last and you didn't have enough money to get more: Never True Transportation Answer Date Recorded In the past 12 months, has l ack of transportation kept you from medical appts, meetings, work or from getting things needed for daily living? No 06/21/2025 Utilities Answer Date Recorded In the past 12 months, has t he electric, gas, oil or water company threatened to shut off services in your home? No 06/21/2025 Depression Answer Date Recorded Patient Health Questionnaire-2 Score 6 06/21/2025 Internet Access Answer Date Recorded Internet Access Q1 Yes 06/21/2025 Internet Access Q2 Not on file 06/21/2025 Comments No Sex and Gender Information Value Date Recorded Sex Assigned at Female 03/14/2025 11:54 AM EDT Legal Sex Female 1:43 PM EST Gender Identity Female 03/14/2025 11:54 AM EDT Sexual Orientation Straight 03/14/2025 11 :54 AM EDT Last Filed Vital Signs Vital Sign Reading Time Taken Comments Blood Pressure 100/72 06/21/2025 10:31 AM EDT Pulse 90 06/21/2025 10:31 AM EDT Temperature 36.8 C (98.2 F) 06/21/2025 10:31 AM EDT Respiratory Rate 16 06/21/2025 10:31 AM EDT Oxygen Saturation 100% 04/24/2025 6:04 PM EDT Inhaled Oxygen Concentration - - Weight 70.5 kg (155 lb 6.4 oz) 06/21/2025 10:31 AM EDT Height 172.7 cm (5' 8 ) 06/21/2025 10:31 AM EDT Body Mass Index 23.63 06/21/2025 10:31 AM EDT Plan of Treatment Health Maintenance Due Date Last Done Comments HIV Screening 1983 Lipid Panel 1983 Disability Screening 1983 Alcohol/Substance Use Screening 1995 Family Planning (PISQ) 1998 HPV Vaccines (1 - 3-dose series) 1998 Hepatitis C Screening 2001 DTaP/Tdap/Td Vaccines (1 - Tdap) 2002 Hepatitis B Vaccines (1 of 3 - 19+ 3-dose series) 2002 Pneumococcal Vaccine: Pediatrics (0 to 5 Years) and At-Risk Patients (6 to 49) Years (1 of 2 - PCV) 2002 Pap Smear 2004 Cervical Cancer Screening 2013 HPV/Cotest 2013 Mammogram 2023 COVID-19 Vaccine (1 - 2023-2 5 season) 2025 Influenza Vaccine (#1) 2025 Depression Monitoring 12/22/2025 06/21/2025 , 06/21/2025 SDOH Screening 06/21/2026 06/21/2025 Tobacco Screening 06/21/2026 06/21/2025 Diabetes: Hemoglobin A1C 07/29/2026 07/29/2025 Zoster Vaccines (1 of 2) 2033 RSV Patients and Patients Aged 60 years or older (1 - 1-dose 75+ series) 2058 HIB Vaccines Aged Out No longer eligi ble based on patient's age to complete this topic Hepatitis A Vaccines Aged Out No long er eligible based on patient's age to complete this topic IPV Vaccines Aged Out No longer eligi ble based on patient's age to complete this topic Meningococcal B Vaccine Aged Out No l onger eligible based on patient's age to complete this topic Meningococcal Vaccine Aged Out No chicho tatyana eligible based on patient's age to complete this topic RSV under 20 months Aged Out No longe r eligible based on patient's age to complete this topic Rotavirus Vaccines Aged Out No longer eligible based on patient's age to complete this topic Insurance [facility] C3 Care Teams Cranberry Grower Relationship Specialty Start Date End Date Becca Pollard FNP [address] [place] [id number] PCP - General Family Medicine 06/21/25
--- OUTSIDE RECORDS SUMMARY | 2025-08-17 09:47 | XMS_ITS | Encounter Summary ---
Author Organization [facility] Address [address] [place] [phone] Phone Care Team Providers Care Finish Specialist Name Role Phone Marco Acharya DO Unavailable Pcp, Unknown Primary Care Provider Unavailabl e Encounter Details Date Type Department Care Team ([facility] st Contact Info) Description 08/01/2025 Procedure [facility], [address] [address] Social History Tobacco Use Types Packs/Day Years Used Date Smoking Tobacco: Every Day Cigarettes Alcohol Use Standard Drinks/Week Comments Yes 0 [...] PM EDT Sexual Orientation Not on file documented as of this encounter Plan of Treatment Not on file documented as of this encounter Visit Diagnoses Not on filedocumented in this encounter Care Teams Finish Specialist Relationship Specialty Start Date End Date Pcp, Unknown PCP - General 02/02/23 Marco Acharya DO [address] [place] [address], [facility] [[email or web address]] [address] [place] [address] [email or web address] Family Medicine 09/22/17 documented as of this encounter Additional Source Comments The information contained in this document represents components of the legal health record. It is not the complete legal health record.[facility]
[2025-08-17 10:00] VITALS: BP 158/81; PULSE 83; RESP 18
[2025-08-17 10:18] LABS: MANUAL DIFF FLAG NO
[2025-08-17 10:21] LABS: Hematocrit 38.3 % (37.0-47.0); Hemoglobin 12.3 g/dl (12.0-16.0); Imm Gran Abs Auto 0.03 X10*3/uL (0.00-0.03); Imm Gran Pct Auto 0.3 % (0.0-0.4); Lymphocytes Absolute Auto 2.4 X10*3/uL (1.2-4.9); Mean Corpuscular HGB Conc 32.1 g/dl (31.0-35.0); Mean Corpuscular Hemoglobin 27.6 pg (27.0-33.0); Mean Corpuscular Volume 85.9 fL (80.0-98.0); NRBC Abs Auto 0.000 X10*3/uL (0.0-0.012); NRBC Pct Auto 0.0 /100WBC (0.0-0.2); Platelet Count 335 X10*3/uL (160-400); Red Blood Count 4.46 X10*6/uL (4.20-5.50); White Blood Count 10.4 X10*3/uL (4.8-10.8)
[2025-08-17 10:23] LABS: Appearance Urine Clear; Glucose Urine UA Negative (Negative); PH 6.0 (5.0-9.0); Specific Gravity - Urine 1.020 (1.005-1.025)
[2025-08-17 10:24] LABS: UPreg QC Valid YES
[2025-08-17 10:33] LABS: Cannabinoid Screen Urine POSITIVE (Not Detect)
--- NOTE | 2025-08-17 10:52 | PC.NURSE ---
Pt arrives for +SI and states she is very resourceful but does not have the means to do it here. She admits to feeling very suicidal now, she denies PASTORA XIAO. Pt reports currently attending the PHP program here at [place]. she states it is not helping as she cannot handle being n a social situation. She had been IP at [facility] and got out 10 days ago. she has been on Effexor with no change in mood and was supposed to start Vraylar but did not chicken picker up from the pharmacy. PT states she hs been living with a new BF, Song and is worried she broke him. She states everyone in her life she is horrible too and makes others want to kill themselves. Pt is very tearful, she has been eating and sleeping, she states she stopped taking her med 5 days ago, and has been having psychotic rants since then. Pt is oriented to the unit, provided a quiet room and is compliant with labs and urine testing.
[2025-08-17 10:54] LABS: Acetaminophen LAB < 3 mcg/mL (<30); Alanine Aminotransferase 25 U/L (0-31); Albumin Level 4.5 g/dL (3.5-5.0); Alkaline Phosphatase 62 U/L (39-117); Anion Gap 12 (12-20); Aspartate Amino Transferase 22 U/L (5-31); Blood Urea Nitrogen 17 mg/dL (9-16); Calcium 9.2 mg/dL (8.4-10.2); Carbon Dioxide 23 mmol/L (22-29); Chloride 107 mmol/L (96-108); Creatinine Clr Calc Pharmacy 109.4; Estimated Glomerular Filt Rate > 60; Potassium 3.9 mmol/L (3.3-5.1); Salicylate < 5.0 mg/dL (15-30); Sodium 138 mmol/L (135-145); Total Protein 7.1 g/dL (6.5-8.0)
--- NOTE | 2025-08-17 12:33 | MHC.CARE ---
Pt will be a bedsearch
--- NOTE | 2025-08-17 13:04 | PC.NURSE ---
patient states she doesnt feel well after eating her lunch, patient states she has an onion allergy- which is documented and was not sure if onion powder was placed on food. Kitchen contacted by chef Claudine in kitchen verified no onions or onion powder was on the lunch today. patient VS taken, patient tearful at this time, appears anxious.
[2025-08-17 13:06] VITALS: BP 129/96; PULSE 92; RESP 20; O2SAT 97
--- NOTE | 2025-08-17 16:08 | PC.NURSE ---
Pt has remained tearful and anxious, she has had snacks and a cup of coffee, she reported feeling allergies and anxiety, PRN given with moderate effect. she has remained safe.
--- NOTE | 2025-08-17 19:23 | PHA.MEDREC ---
Pharmacy Consult ? Medication Reconciliation Pharmacy has completed the medication reconciliation. Reviewed med rec done by nursing, patient had not started Vraylar but provider agreed to have her start in house
[2025-08-17 19:36] VITALS: BP 102/72; PULSE 66; RESP 16; TEMP 36.1; O2SAT 99
[2025-08-17] MEDS: Butalb/Acetamin/Caff 50/325/40 TABLET 1 TAB PO (19:36)
--- NOTE | 2025-08-17 19:38 | PC.NURSE ---
patient refused nicotine patch and stated she'd rather get a gum in the morning.
--- NOTE | 2025-08-18 05:34 | PC.NURSE ---
patient got oob and walked to bathroom. can hear her crying. upon exiting bathroom spoke with patient, states she is very upset about everything and expects herself to be crying a lot. offered her prn atarax and patient agreed it would be beneficial. medicated per jan.
--- NOTE | 2025-08-18 06:22 | PC.NURSE ---
patient is on the phone with her boyfriend shanthi, at times tearful then laughing. nad at this time.
[2025-08-18 07:49] VITALS: BP 112/79; PULSE 77; RESP 14; TEMP 36.6; O2SAT 99
--- NOTE | 2025-08-18 07:54 | MHC.EDTECH ---
Patient requesting a book from her belongings. Hard cover book, approved by Lucia LE, this tech examined binding and searched pages, provided book and reading glasses to patient.
[2025-08-18] MEDS: Venlafaxine HCl ER 37.5 MG CAP.ER.24H PO (08:44)
--- NOTE | 2025-08-18 08:55 | PC.NURSE ---
Assumed care, report received. Pt is calm and cooperative. she reports feeling alittle better today, still endorsing SI. She states she talked to her BF and still wants to stay in a relationship, this gave her some hope. she is sitting in her room Journaling and coloring.
[2025-08-18] MEDS: Butalb/Acetamin/Caff 50/325/40 TABLET 1 TAB PO ×2 (09:35→16:51)
[2025-08-18 13:32] VITALS: BP 104/68; PULSE 86; RESP 18; TEMP 36.3; O2SAT 99
[2025-08-19 00:34] VITALS: BP 103/77; PULSE 73; RESP 16; TEMP 36.5; O2SAT 99
[2025-08-19] MEDS: Butalb/Acetamin/Caff 50/325/40 TABLET 1 TAB PO ×3 (00:44→19:48)
--- NOTE | 2025-08-19 07:27 | PC.NURSE ---
Assumed care, report received. Pt is awake, calm and cooperative. she eats breakfast and spends time coloring in her room, she states she still endorses SI but is more hopeful because her BF is being supportive.
[2025-08-19] MEDS: Venlafaxine HCl ER 37.5 MG CAP.ER.24H PO (07:33)
[2025-08-19 08:07] VITALS: BP 123/80; PULSE 82; RESP 18; TEMP 36.5; O2SAT 97
[2025-08-19 15:57] VITALS: BP 116/78; PULSE 87; RESP 16; TEMP 36.4; O2SAT 99
--- NOTE | 2025-08-19 18:16 | ECG_ITS ---
Test Reason : R/O PROLONGED QT Blood Pressure : */* mmHG Vent. Rate : 68 BPM Atrial Rate : 68 BPM P-R Int : 178 ms QRS Dur : 108 ms QT Int : 422 ms P-R-T Axes : 36 47 53 degrees QTcB Int : 448 ms Normal sinus rhythm Incomplete right bundle branch block Borderline ECG No previous ECGs available Referred By: Demarco Fisher Electronically Signed By: Barrington Kelly
--- NOTE | 2025-08-19 19:00 | MHC.CARE ---
Accepted to [facility] 08/20 ETA 6pm ( likely earlier). Accepting Dr. Treviño [address] , [place] [address]
--- NOTE | 2025-08-20 04:18 | PC.NURSE ---
pt requesting atarax d/t increased anxiety - prn medication utilized. effectiveness pending.
--- NOTE | 2025-08-20 04:58 | PC.NURSE ---
Nurse to nurse provided to MIMI Liu at [facility] in [place] at this time. Per Alexa, patient approved for 1900 arrival on 08/20/25.
[2025-08-20 06:31] VITALS: RESP 16
[2025-08-20] MEDS: Butalb/Acetamin/Caff 50/325/40 TABLET 1 TAB PO (07:51)
[2025-08-20 08:45] VITALS: BP 124/84; PULSE 89; RESP 18; TEMP 36.4; O2SAT 99
[2025-08-20] MEDS: Venlafaxine HCl ER 37.5 MG CAP.ER.24H PO (08:54)
--- NOTE | 2025-08-20 08:58 | PC.NURSE ---
pt medicated per provider order. pt refusing nicotine patch administration as she states that it makes her skin itchy. prn nicorette utilized in place. effectiveness pending. pt otherwise remains calm/cooperative. pending transport to [facility] 1900. plan of care ongoing.
--- NOTE | 2025-08-20 12:23 | PC.NURSE ---
patient's boyfriend bedside to visit. brought personal belongings from home. belongings labeled/placed in locker #1.
--- NOTE | 2025-08-20 17:12 | PC.NURSE ---
report given to AUNDREA Beltran. pt being transferred to [facility] at this time.
[2025-08-20 17:14] VITALS: BP 124/84; PULSE 89; RESP 18; TEMP 36.4; O2SAT 99
== END 2025-08-20 17:15 ==
PROVIDERS: Physician Assistant Medical; Emergency Provider Emergency Medicine
DX: F33.1 Major depressive disorder, recurrent, moderate (principal); R45.851 Suicidal ideations; Z51.81 Encounter for therapeutic drug level monitoring; R94.31 Abnormal electrocardiogram [ECG] [EKG]; Z79.899 Other long term (current) drug therapy
CPT/HCPCS: 36415; 80053; 80143; 80179; 80307; 81003; 81025; 85025; 93005; 99285; S9485

== ENCOUNTER → 2025-08-19 18:16 | Outpatient (BNV) | payer MEDICAID, SELFPAY | PROVIDERS: Emergency Provider Emergency Medicine; Visit Provider Internal Medicine Cardiovascular Disease | DX: I45.10 Unspecified right bundle-branch block (principal) | CPT/HCPCS: 93010 ==